=== PATIENT | male | born 1945 | race Caucasian/White ===

== ENCOUNTER 2025-10-24 10:15 | Inpatient (IN) | payer OTHER ==
[~2025-10-24] VITALS: Ht 182.9 cm; Wt 70.3 kg
[2025-10-24] MEDS ORDERED: ERYTHROMYCIN 0.5% OPHT OINT 3.5 GM TUBE ONE (10:28)
[2025-10-24] MEDS: ERYTHROMYCIN 0.5% OPHT OINT 3.5 GM TUBE EACHEYE SCH (10:40)
[2025-10-24] MEDS: IV NORMAL SALINE 500 ML BAG IV ONE (10:45)
[2025-10-24 10:59] LABS: PLATELET COUNT (AUTO) 333 K/uL (152-348); RED BLOOD CELL COUNT(AUTO) 3.21 MIL/uL (4.06-5.63); RED CELL DISTRIBUTION WIDTH 18.2 % (12.1-16.2); WHITE BLOOD COUNT (AUTO) 24.7 K/uL (3.6-10.2)
[2025-10-24] MEDS ORDERED: BISA10SU61 RC (11:03)
[2025-10-24] MEDS ORDERED: ENOX40DI SQ (11:03)
[2025-10-24] MEDS ORDERED: PANT40TA49 GT (11:03)
[2025-10-24] MEDS ORDERED: MAGN400O6 PO (11:03)
[2025-10-24] MEDS ORDERED: NA P133E RC (11:03)
[2025-10-24] MEDS ORDERED: ACET-3752 GT (11:03)
[2025-10-24] MEDS ORDERED: FIDA200T GT (11:03)
[2025-10-24] MEDS ORDERED: PEG15DRO14 EACHEYE (11:03)
[2025-10-24] MEDS ORDERED: ARGI1POW17 GT (11:03)
[2025-10-24] MEDS ORDERED: HYDR170P TP (11:03)
[2025-10-24] MEDS ORDERED: METR-147 GT (11:03)
[2025-10-24] MEDS ORDERED: COLL30OI TOP (11:03)
[2025-10-24] MEDS ORDERED: MAG-55 GT (11:03)
[2025-10-24] MEDS: PIPERACILLIN SODIUM/TAZOBACTAM 3.375 G in IV DEXTROSE 5% 50 ML IV ONE (11:10)
[2025-10-24] MEDS ORDERED: PIPERACILLIN/TAZOBACTAM/D5W 50 ML IV ONE (11:10)
[2025-10-24] MEDS ORDERED: VANCOMYCIN IV 200 ML ONE (11:10)
[2025-10-24 11:11] LABS: *BILIRUBIN,URIN NEGATIVE (NEGATIVE); *CLARITY,URINE SLIGHTLY CLOUDY (CLEAR); *COLOR,URINE YELLOW (YELLOW); *KETONES,URINE NEGATIVE (NEGATIVE); *PROTEIN,URINE 1+ (NEGATIVE); *UROBILINOGEN,URINE 0.2 E.U./dl (NORMAL); LEUKOCYTE ESTERASE ,URINE 2+ (NEGATIVE); NITRITE, URINE NEGATIVE (NEGATIVE); UGLUCOSE NEGATIVE (NEGATIVE)
[2025-10-24 11:11] LABS: CREATININE 0.7 mg/dL (0.6-1.3); SODIUM SERUM 140 mmol/L (136-145); UREA NITROGEN, BLOOD 18 mg/dL (7-18)
[2025-10-24 11:17] LABS: ASPARTATE AMINOTRANSFERASE 31 U/L (15-37); TOTAL PROTEIN, SERUM 7.7 g/dL (6.4-8.2)
[2025-10-24 11:19] LABS: LACTIC ACID 2.0 mmol/L (0.4-2.0)
[2025-10-24 11:22] LABS: *BLOOD, URINE TRACE (NEGATIVE)
[2025-10-24] MEDS: VANCOMYCIN IV 1,000 MG in IV DEXTROSE 5% 250 ML IV ONE (11:45)
[2025-10-24] MEDS ORDERED: PANT40SU2 GT (12:41)
[2025-10-24] MEDS ORDERED: ACET100V4 NEB (14:47)
[2025-10-24 17:23] VITALS: BP 137/65
[2025-10-24 17:45] VITALS: BP 141/75; TEMP 98.2; O2SAT 96
[2025-10-24] MEDS ORDERED: BISACODYL 10 MG SUPP.RECT RC PRN (18:00)
[2025-10-24] MEDS ORDERED: FLEET ENEMA 133 ML BOTTLE RC PRN (18:00)
[2025-10-24] MEDS ORDERED: ACETAMINOPHEN 325 MG TABLET-SA PATIENTS-PAIN ONLY GT PRN (18:00)
[2025-10-24] MEDS ORDERED: ACETAMINOPHEN 325 MG TABLET GT PRN (19:00)
[2025-10-24] MEDS ORDERED: MAG HYDROX/AL HYDROX/SIMETH 30 ML LIQUID UDC GT PRN (19:00)
[2025-10-24 20:00] VITALS: BP 141/80; TEMP 98.5; O2SAT 100
[2025-10-24] MEDS: MEDIHONEY= THERAHONEY 1.5 OZ TUBE TOP SCH (21:00)
[2025-10-24] MEDS ORDERED: COLLAGENASE OINT 30 GM TUBE TOP SCH (21:00)
[2025-10-24] MEDS ORDERED: MEROPENEM 1GM/NS 100ML IVPB **ER PYXIS ONLY IV ONE (21:28)
[2025-10-24 22:00] VITALS: O2SAT 97
[2025-10-24] MEDS: ACETYLCYSTEINE 10% 4ML VIAL NEB SCH (22:00)
[2025-10-24] MEDS: MEROPENEM 1 G in IV NORMAL SALINE 100 ML IV SCH (22:01)
[2025-10-25] VITALS (12 sets, daily range): BP systolic 122–145; BP diastolic 65–76; TEMP 97.6–98.4; O2SAT 93–100
[2025-10-25 05:11] LABS: PLATELET COUNT (AUTO) 274 K/uL (152-348); RED BLOOD CELL COUNT(AUTO) 2.61 MIL/uL (4.06-5.63); RED CELL DISTRIBUTION WIDTH 17.6 % (12.1-16.2); WHITE BLOOD COUNT (AUTO) 17.8 K/uL (3.6-10.2)
[2025-10-25 05:20] LABS: IRON, SERUM 16 ug/dL (50-175)
[2025-10-25 05:25] LABS: ASPARTATE AMINOTRANSFERASE 15 U/L (15-37); CREATININE 0.6 mg/dL (0.6-1.3); SODIUM SERUM 142 mmol/L (136-145); TOTAL PROTEIN, SERUM 6.5 g/dL (6.4-8.2); UREA NITROGEN, BLOOD 13 mg/dL (7-18)
[2025-10-25] MEDS ORDERED: MEROPENEM 1GM/NS 100ML IVPB **ER PYXIS ONLY IV ONE (05:49)
[2025-10-25 06:05] LABS: EOSINOPHILS % (MANUAL) 1 % (0-8); LYMPHOCYTES % (MANUAL) 5 % (20-40); MONOCYTES % (MANUAL) 8 % (2-10); NEUTROPHILS % (MANUAL) 86 % (42-75); PLATELET ESTIMATE ADEQUATE
[2025-10-25] MEDS: PANTOPRAZOLE ORAL SUSPENSION 40 MG SUSPDR.PKT GT SCH (07:21)
[2025-10-25] MEDS ORDERED: Medication Not On Formulary EA (Argin/Glut/Cahmb/Collag/Mv-Min (Juven Packet) 1 EACH) GT SCH (09:00)
[2025-10-25] MEDS: ARGININE/GLUTAMINE/CALCIUM BMB 1 EACH POWD.PACK GT SCH (09:11)
[2025-10-25] MEDS: GEL BASE NO.41 100 GM GEL..GRAM. TOP SCH (09:20)
[2025-10-25 09:24] LABS: ABG BASE EXCESS 6.1 mmol/L (-2.0-3.0); ABG HCO3 30.6 mmol/L (21.0-28.0); ABG PCO2 44.1 mmHg (35.0-48.0); ABG PH 7.459 (7.350-7.450); ABG PO2 92.5 mmHg (83.0-108.0); ABG SITE RIGHT RADIAL; ABG TOTAL HEMOGLOBIN 8.5 G/dL (13.5-17.5); AaDO2 97.4 mmHg; FIO2 35.0 %; FLOW, BLOOD GAS 6.00 L/min (0.00-30.00)
[2025-10-25] MEDS: VANCOMYCIN IV 1,000 MG in IV DEXTROSE 5% 250 ML IV SCH (10:15)
[2025-10-25] MEDS: POLYVINYL ALCOHOL OPHT DROPS 15 ML BOTTLE EACHEYE SCH (13:30)
[2025-10-25] MEDS: ALBUTEROL SULFATE 2.5 MG/ 0.5 ML NEBU NEB SCH (14:51)
[2025-10-25] MEDS: MEROPENEM 1 G in IV NORMAL SALINE 100 ML IV SCH (15:34)
[2025-10-25] MEDS: MINERAL OIL/PETROLAT OPHT OINT 3.5 GM TUBE EACHEYE SCH (17:16)
[2025-10-25] MEDS: VANCOMYCIN FOR GT/NG USE GT SCH (18:00)
[2025-10-25] MEDS: JEVITY 1.2 1000 ML LIQUID GT PRN (19:00)
[2025-10-25] MEDS: SODIUM HYPOCHLORITE 0.125% (QUARTER STRENGTH) 473 ML BOTTLE TP SCH (20:06)
[2025-10-26] VITALS (16 sets, daily range): BP systolic 125–153; BP diastolic 59–74; TEMP 97.4–99.5; O2SAT 95–100
[2025-10-26 05:47] LABS: PLATELET COUNT (AUTO) 266 K/uL (152-348); RED BLOOD CELL COUNT(AUTO) 2.82 MIL/uL (4.06-5.63); RED CELL DISTRIBUTION WIDTH 17.2 % (12.1-16.2); WHITE BLOOD COUNT (AUTO) 15.4 K/uL (3.6-10.2)
[2025-10-26 05:58] LABS: CREATININE 0.6 mg/dL (0.6-1.3); SODIUM SERUM 143 mmol/L (136-145); UREA NITROGEN, BLOOD 21 mg/dL (7-18)
[2025-10-26] MEDS: VANCOMYCIN HCL 750 MG in IV DEXTROSE 5% 250 ML IV SCH (20:19)
[2025-10-27] VITALS (13 sets, daily range): BP systolic 128–163; BP diastolic 40–83; TEMP 97.6–98.9; O2SAT 98–100
[2025-10-27 05:06] LABS: PLATELET COUNT (AUTO) 302 K/uL (152-348); RED BLOOD CELL COUNT(AUTO) 2.89 MIL/uL (4.06-5.63); RED CELL DISTRIBUTION WIDTH 17.2 % (12.1-16.2); WHITE BLOOD COUNT (AUTO) 10.4 K/uL (3.6-10.2)
[2025-10-27 05:22] LABS: ASPARTATE AMINOTRANSFERASE 21 U/L (15-37); CREATININE 0.6 mg/dL (0.6-1.3); SODIUM SERUM 145 mmol/L (136-145); TOTAL PROTEIN, SERUM 6.6 g/dL (6.4-8.2); UREA NITROGEN, BLOOD 21 mg/dL (7-18)
[2025-10-27] MEDS: SOD FERRIC GLUC COMPLX/SUCROSE 125 MG in IV NORMAL SALINE 100 ML IV SCH (15:45)
[2025-10-27] MEDS ORDERED: PIPERACILLIN SODIUM/TAZOBACTAM 3.375 G in IV DEXTROSE 5% 50 ML IV SCH (22:00)
[2025-10-28] VITALS (11 sets, daily range): BP systolic 102–149; BP diastolic 45–73; TEMP 97.4–100; O2SAT 92–100
[2025-10-28] MEDS ORDERED: PIPERACILLIN/TAZOBACTAM/D5W 50 ML IV ONE (01:22)
[2025-10-28] MEDS: PIPERACILLIN SODIUM/TAZOBACTAM 3.375 G in IV DEXTROSE 5% 50 ML IV ONE (06:24)
[2025-10-28 08:14] LABS: PLATELET COUNT (AUTO) 312 K/uL (152-348); RED BLOOD CELL COUNT(AUTO) 2.73 MIL/uL (4.06-5.63); RED CELL DISTRIBUTION WIDTH 17.3 % (12.1-16.2); WHITE BLOOD COUNT (AUTO) 11.7 K/uL (3.6-10.2)
[2025-10-28 08:27] LABS: CREATININE 0.6 mg/dL (0.6-1.3); SODIUM SERUM 143 mmol/L (136-145); UREA NITROGEN, BLOOD 23 mg/dL (7-18)
[2025-10-28] MEDS ORDERED: PIPERACILLIN SODIUM/TAZOBACTAM 3.375 G in IV DEXTROSE 5% 100 ML IV SCH (14:00)
[2025-10-28] MEDS: SODIUM HYPOCHLORITE 0.125% (QUARTER STRENGTH) 473 ML BOTTLE TP SCH (14:25)
[2025-10-28] MEDS: PIPERACILLIN SODIUM/TAZOBACTAM 3.375 G in IV DEXTROSE 5% 100 ML IV SCH (16:01)
[2025-10-29] VITALS (12 sets, daily range): BP systolic 118–146; BP diastolic 59–72; TEMP 98.5–98.8; O2SAT 73–100
[2025-10-29 06:44] LABS: PLATELET COUNT (AUTO) 320 K/uL (152-348); RED BLOOD CELL COUNT(AUTO) 2.93 MIL/uL (4.06-5.63); RED CELL DISTRIBUTION WIDTH 16.9 % (12.1-16.2); WHITE BLOOD COUNT (AUTO) 13.2 K/uL (3.6-10.2)
[2025-10-29 07:16] LABS: ASPARTATE AMINOTRANSFERASE 26 U/L (15-37); CREATININE 0.5 mg/dL (0.6-1.3); SODIUM SERUM 144 mmol/L (136-145); TOTAL PROTEIN, SERUM 6.6 g/dL (6.4-8.2); UREA NITROGEN, BLOOD 12 mg/dL (7-18)
[2025-10-30] VITALS (12 sets, daily range): BP systolic 114–154; BP diastolic 51–76; TEMP 97.3–99.2; O2SAT 93–100
[2025-10-30 06:51] LABS: PLATELET COUNT (AUTO) 342 K/uL (152-348); RED BLOOD CELL COUNT(AUTO) 2.86 MIL/uL (4.06-5.63); RED CELL DISTRIBUTION WIDTH 17.5 % (12.1-16.2); WHITE BLOOD COUNT (AUTO) 12.7 K/uL (3.6-10.2)
[2025-10-30 06:59] LABS: CREATININE 0.5 mg/dL (0.6-1.3); SODIUM SERUM 149 mmol/L (136-145)
[2025-10-30 07:23] LABS: UREA NITROGEN, BLOOD 9 mg/dL (7-18)
[2025-10-30 15:05] LABS: *OCCULT BLOOD STOOL NEGATIVE (NEGATIVE)
[2025-10-31] VITALS (12 sets, daily range): BP systolic 129–159; BP diastolic 58–78; TEMP 98–99.1; O2SAT 95–100
[2025-10-31 07:06] LABS: PLATELET COUNT (AUTO) 323 K/uL (152-348); RED BLOOD CELL COUNT(AUTO) 2.83 MIL/uL (4.06-5.63); RED CELL DISTRIBUTION WIDTH 17.3 % (12.1-16.2); WHITE BLOOD COUNT (AUTO) 10.8 K/uL (3.6-10.2)
[2025-10-31 07:25] LABS: CREATININE 0.6 mg/dL (0.6-1.3); SODIUM SERUM 148 mmol/L (136-145); UREA NITROGEN, BLOOD 14 mg/dL (7-18)
[2025-11-01] VITALS (13 sets, daily range): BP systolic 134–164; BP diastolic 67–82; TEMP 98–99.6; O2SAT 91–100
[2025-11-01 06:55] LABS: PLATELET COUNT (AUTO) 356 K/uL (152-348); RED BLOOD CELL COUNT(AUTO) 2.98 MIL/uL (4.06-5.63); RED CELL DISTRIBUTION WIDTH 18.1 % (12.1-16.2); WHITE BLOOD COUNT (AUTO) 10.6 K/uL (3.6-10.2)
[2025-11-01 07:19] LABS: CREATININE 0.6 mg/dL (0.6-1.3); SODIUM SERUM 147 mmol/L (136-145); UREA NITROGEN, BLOOD 20 mg/dL (7-18)
[2025-11-01] MEDS: IV D5W 1000ML 1,000 ML IV PRN (18:23)
[2025-11-02] VITALS (12 sets, daily range): BP systolic 119–155; BP diastolic 55–84; TEMP 97.7–99.1; O2SAT 96–100
[2025-11-02 06:19] LABS: PLATELET COUNT (AUTO) 327 K/uL (152-348); RED BLOOD CELL COUNT(AUTO) 2.66 MIL/uL (4.06-5.63); RED CELL DISTRIBUTION WIDTH 17.9 % (12.1-16.2); WHITE BLOOD COUNT (AUTO) 11.4 K/uL (3.6-10.2)
[2025-11-02 06:38] LABS: CREATININE 0.5 mg/dL (0.6-1.3); SODIUM SERUM 144 mmol/L (136-145); UREA NITROGEN, BLOOD 12 mg/dL (7-18)
[2025-11-02] MEDS: POTASSIUM CHLORIDE 20 MEQ POWDER PACKET GT ONE (11:53)
[2025-11-02] MEDS ORDERED: POTASSIUM CHLORIDE 50 ML IV SCH (12:00)
[2025-11-03] VITALS (12 sets, daily range): BP systolic 113–160; BP diastolic 57–77; TEMP 98–99.8; O2SAT 94–100
[2025-11-03 06:38] LABS: PLATELET COUNT (AUTO) 308 K/uL (152-348); RED BLOOD CELL COUNT(AUTO) 2.93 MIL/uL (4.06-5.63); RED CELL DISTRIBUTION WIDTH 17.9 % (12.1-16.2); WHITE BLOOD COUNT (AUTO) 11.9 K/uL (3.6-10.2)
[2025-11-03 07:04] LABS: CREATININE 0.4 mg/dL (0.6-1.3); SODIUM SERUM 137 mmol/L (136-145); UREA NITROGEN, BLOOD 18 mg/dL (7-18)
[2025-11-03] MEDS: ACETAMINOPHEN 325 MG TABLET GT PRN (20:54)
[2025-11-04] VITALS (11 sets, daily range): BP systolic 106–142; BP diastolic 57–72; TEMP 97.4–99.6; O2SAT 94–100
[2025-11-04 06:36] LABS: PLATELET COUNT (AUTO) 319 K/uL (152-348); RED BLOOD CELL COUNT(AUTO) 3.11 MIL/uL (4.06-5.63); RED CELL DISTRIBUTION WIDTH 17.9 % (12.1-16.2); WHITE BLOOD COUNT (AUTO) 11.4 K/uL (3.6-10.2)
[2025-11-04 06:48] LABS: CREATININE 0.4 mg/dL (0.6-1.3); SODIUM SERUM 136 mmol/L (136-145); UREA NITROGEN, BLOOD 21 mg/dL (7-18)
[2025-11-04] MEDS ORDERED: VITAL AF 1.2 1,000 ML LIQUID GT PRN ×2 (12:15)
[2025-11-04 13:12] LABS: *BILIRUBIN,URIN NEGATIVE (NEGATIVE); *COLOR,URINE LIGHT YELLOW (YELLOW); *KETONES,URINE NEGATIVE (NEGATIVE); *PROTEIN,URINE 1+ (NEGATIVE); *UROBILINOGEN,URINE 0.2 E.U./dl (NORMAL); LEUKOCYTE ESTERASE ,URINE 1+ (NEGATIVE); NITRITE, URINE NEGATIVE (NEGATIVE); UGLUCOSE NEGATIVE (NEGATIVE)
[2025-11-04 13:16] LABS: *BLOOD, URINE TRACE (NEGATIVE); *CLARITY,URINE SLIGHTLY CLOUDY (CLEAR)
[2025-11-04 13:39] LABS: CALCIUM OXALATE CRYSTALS,UR FEW /HPF (NONE SEEN); YEAST,URINE RARE /HPF (NONE SEEN)
[2025-11-04] MEDS: MEROPENEM 1 G in IV NORMAL SALINE 100 ML IV SCH (14:28)
[2025-11-04] MEDS: LINEZOLID 600 MG TABLET PEG SCH (14:28)
[2025-11-04] MEDS: REMEDY ESSENTIAL ZINC PASTE 113 GM TOP SCH (20:22)
[2025-11-05] VITALS (14 sets, daily range): BP systolic 94–142; BP diastolic 49–75; TEMP 97.2–98.3; O2SAT 94–99
[2025-11-05 06:51] LABS: PLATELET COUNT (AUTO) 326 K/uL (152-348); RED BLOOD CELL COUNT(AUTO) 3.04 MIL/uL (4.06-5.63); RED CELL DISTRIBUTION WIDTH 18.0 % (12.1-16.2); WHITE BLOOD COUNT (AUTO) 12.6 K/uL (3.6-10.2)
[2025-11-05 07:00] LABS: CREATININE 0.6 mg/dL (0.6-1.3); SODIUM SERUM 135 mmol/L (136-145); UREA NITROGEN, BLOOD 23 mg/dL (7-18)
[2025-11-06] VITALS (9 sets, daily range): BP systolic 112–145; BP diastolic 56–74; TEMP 97.7–99.7; O2SAT 93–100
[2025-11-06] MEDS: VITAL AF 1.2 1,000 ML LIQUID GT PRN (06:07)
[2025-11-06 06:45] LABS: PLATELET COUNT (AUTO) 272 K/uL (152-348); RED BLOOD CELL COUNT(AUTO) 2.89 MIL/uL (4.06-5.63); RED CELL DISTRIBUTION WIDTH 18.0 % (12.1-16.2); WHITE BLOOD COUNT (AUTO) 11.4 K/uL (3.6-10.2)
[2025-11-06 07:00] LABS: CREATININE 0.5 mg/dL (0.6-1.3); SODIUM SERUM 135 mmol/L (136-145); UREA NITROGEN, BLOOD 10 mg/dL (7-18)
[2025-11-06] MEDS: MAGNESIUM SULFATE/D5W 100 ML IV SCH (10:21)
[2025-11-06] MEDS: POTASSIUM PHOSPHATE MM 15 MMOL in IV NORMAL SALINE 250 ML IV ONE (10:21)
[2025-11-06] MEDS ORDERED: VANC250C19 PO (10:25)
[2025-11-06] MEDS ORDERED: LINE600T12 GT (10:25)
[2025-11-06] MEDS ORDERED: MERO1VIA23 IV (10:25)
== END 2025-11-06 21:00 | DRG 853 ==
LOC: ER 10:15 → ICU IN 17:17 → CCU 19:03 → TELE3 10-27 14:50
PROVIDERS: ADMIT Internal Medicine; ATTEND Internal Medicine
PROC: 05HC33Z Insertion of Infusion Device into Left Basilic Vein, Percutaneous Approach (ICD-10-PCS; principal; 2025-10-24)
PROC: 0QB10ZZ Excision of Sacrum, Open Approach (ICD-10-PCS; 2025-11-04)
DX: A41.50 Gram-negative sepsis, unspecified (principal); E43 Unspecified severe protein-calorie malnutrition; L89.893 Pressure ulcer of other site, stage 3; L89.324 Pressure ulcer of left buttock, stage 4; L89.154 Pressure ulcer of sacral region, stage 4; J69.0 Pneumonitis due to inhalation of food and vomit; J96.21 Acute and chronic respiratory failure with hypoxia; J15.1 Pneumonia due to Pseudomonas; G93.40 Encephalopathy, unspecified; I82.611 Acute embolism and thrombosis of superficial veins of right upper extremity; R13.10 Dysphagia, unspecified; N39.0 Urinary tract infection, site not specified; R65.20 Severe sepsis without septic shock; I71.43 Infrarenal abdominal aortic aneurysm, without rupture; D50.9 Iron deficiency anemia, unspecified; F03.90 Unspecified dementia, unspecified severity, without behavioral disturbance, psychotic disturbance, mood disturbance, and anxiety; R64 Cachexia; E87.0 Hyperosmolality and hypernatremia; Z16.12 Extended spectrum beta lactamase (ESBL) resistance; D68.59 Other primary thrombophilia; E87.1 Hypo-osmolality and hyponatremia; H16.002 Unspecified corneal ulcer, left eye; Z74.01 Bed confinement status; Z86.16 Personal history of COVID-19; L89.892 Pressure ulcer of other site, stage 2; E88.09 Other disorders of plasma-protein metabolism, not elsewhere classified; H16.202 Unspecified keratoconjunctivitis, left eye; Z87.19 Personal history of other diseases of the digestive system; Z93.1 Gastrostomy status; Z84.19 Family history of other disorders of kidney and ureter; Z86.19 Personal history of other infectious and parasitic diseases; Z86.73 Personal history of transient ischemic attack (TIA), and cerebral infarction without residual deficits; Z87.01 Personal history of pneumonia (recurrent); K57.30 Diverticulosis of large intestine without perforation or abscess without bleeding; D16.02 Benign neoplasm of scapula and long bones of left upper limb; L85.3 Xerosis cutis; J32.9 Chronic sinusitis, unspecified
CPT/HCPCS: 36415; 36600; 70030-TC; 71045; 83550; 83605; 83735; 84100; 84443; 84484; 85025; 85730; 86625; 87040; 87046; 87070; 87077; 87086; 93307; 94640; 94664; 94760; A4606; A4663; A6209; A6213; G0378; J2185; J2543; J2916; J3373; J3475; J3490; J7040; J7042; J7050; J7070